=== PATIENT | female | born 1970 | race Caucasian/White ===

== ENCOUNTER → 2023-09-09 00:39 | Outpatient (CLI) | payer OTHER, MEDICAID, SELFPAY ==
--- NOTE | 2023-09-09 | DI.US_ITS ---
APPROVED REPORT EXAM: Comprehensive 2D, Doppler, and color-flow Echocardiogram Patient Location: Out-Patient Robotics Specialist: Evelyn Guerrero RDCS (AE) Indications: Intraductal CA LT Breast, Medication management, [facility] use medicine Other Information Study Quality: Good Conclusion Normal left ventricular wall thickness and chamber size. Ejection fraction is 60%. Wall motion is n ormal Normal right ventricular size and function Both atria are normal in size There are no structural valvular abnormalities Mild mitral regurgitation Estimated right ventricular systolic pressure is 25 mmHg Wall motion Left Ventricle The left ventricle is normal size. The left ventricular systolic function is normal. The left ventric ular ejection fraction is within the normal range. There is normal left ventricular wall thickness. T here is normal LV segmental wall motion. There is no ventricular septal defect visualized. LVEF is 60 %. Right Ventricle The right ventricle is normal size. The right ventricular systolic function is normal. Atria The left atrium size is normal. The right atrium size is normal. The interatrial septum is intact wit h no evidence for an atrial septal defect. Aortic Valve The aortic valve is normal in structure. Aortic valve is trileaflet. There is no aortic valvular sten osis. No aortic regurgitation is present. Mitral Valve The mitral valve is normal in structure. No evidence of mitral valve stenosis. Mild mitral regurgitat ion. Tricuspid Valve The tricuspid valve is normal in structure. There is no tricuspid valve stenosis. Trace tricuspid reg urgitation. The RVSP is _25.1 mmHg. Pulmonic Valve The pulmonary valve is normal in structure. There is no pulmonic valvular stenosis. There is no pulmo sylvia valvular regurgitation. Great Vessels The aortic root is normal in size. The ascending aorta is normal in size. Aortic arch is normal in ca liber. IVC is normal in size and collapses >50% with inspiration. Pericardium There is no pericardial effusion. 2D Dimensions IVSD d PLAX 1.00 cm F: 0.6-1.0 Ao Root d 2.84 cm F: 2.7 - 3.3 LVPW d PLAX 1.00 cm F: 0.6 - 1.0 Ao Asc Diam d 3.15 cm F: 2.3 - 3.1 LVID d PLAX 4.41 cm F: 3.8 - 5.2 LVDs 3.05 cm F: 2.2 - 3.5 LV EF Teichholz 58.8 % FS 30.91 % LV EDV (Teich) 88.1 mL LV ESV (Teich) 36.3 mL M-Mode TAPSE 2.11 cm (M/F) >1.7 Auto EF LV EDV A4C 108.2 mL LV EDV A2C 100.5 mL LV EDV BP 104.7 mL LV ESV A4C 42.1 mL LV ESV A2C 42.3 mL LV ESV BP 42.0 mL LVEF(%) A4C 61.1 % LVEF(%) A2C 58.0 % LVEF(%) BP 59.9 % LV SV A4C 66.1 ml LV SV A2C 58.3 ml LV SV BP 62.7 ml LV CO A4C 4.0 L/min LV CO A2C 3.9 L/min LV CO BP 3.9 L/min HR A4C 60.18 BPM HR A2C 66.55 BPM LV EDV Index (BP) LV Strain Long Pk Overal Avg (s) 17.37 RV Strain Global Peak Long. Strain A4C 16.76 Global Peak Long. Strain A4C FW 17.53 LA Volume LA Length A4C 5.6 cm LA Length A2C 5.6 cm LA Area A4C s 18.46 cm2 LA Area A2C s 21.36 cm2 LA Vol A4C A-L 51.77 mL LA Vol A2C A-L 68.85 mL LA Vol Biplane A-L 59.9 mL LA Vol/BSA A4C A-L LA Vol/BSA A2C A-L LA Vol/BSA BP A-L 27.5 mL/m2 LA Vol A4C MOD 46.9 mL LA Vol A2C MOD 63.4 mL LA Vol BP MOD 54.7 mL RA Volume RA Area A4C 8.5 cm2 RA ESV A4C (A-L) 16.0mL RA Vol/BSA A4C A-L RA Length A4C 3.9 cm RA ESV A4C (MOD) 15.8mL LV Diastology MV E' medial 0.079 (>0.07 m/s) MV E Vmax 0.98 (0.4-1.3 m/s) MV E/E' MED 12.38 (<14) MV A Vmax 0.85 (0.4-1.3 m/s) MV E' lateral 0.113 (>0.1 m/s) E/A Ratio 1.2 MV E/E' LAT 8.68 (<14) MV E' Average 0.096 m/s MV E/E'(average) 10.20 Aortic Valve AoV Vmax 1.52 m/s LVOT Vmax 1.15 m/s AoV Peak Grad 9.3 mmHg LVOT Peak Grad 5.3 mmHg AoV Area (Vmax) 2.21 cm2 LVOT VTI 0.263 m AoV VTI 0.351 m LVOT Mean Grad 3.0 mmHg AoV Mean Ced. 1.05 m/s LVOT SV 77.13 mL AoV Mean Grad 5.0 mmHg LVOT Diam s 1.90 cm AoV Area (VTI) 2.20 cm2 Velocity Ratio 0.76 Mitral Valve MV DT 137 (160-240 msec) MV Vmax TIPS 0.96 m/s MV Mean Grad 1.9 (<2mmHg) MV VTI 0.308 m Pulmonary Valve PV Vmax 1.03 (0.5-1.5 m/s) RVOT Vmax 0.91 m/s PV Peak Grad 4.3 mmHg RVOT Peak Gr. 3.3 mmHg PV Mean Ced 0.70 m/s RVOT VTI 0.228 m PV Mean Grad 2.2 mmHg RVOT Mean Gr. 1.9 mmHg Tricuspid Valve RA Pressure 3.00 mmHg TR Vmax 2.35 m/s TV S' 0.12 m/s TR Peak Grad 22.0 mmHg RVSP (TR) 25.1 mmHg
== END ==
PROVIDERS: Visit Provider Physician Assistant Medical
DX: D05.12 Intraductal carcinoma in situ of left breast (principal)
CPT/HCPCS: 93306

== ENCOUNTER 2024-01-19 02:29 | Outpatient (CLI) | payer MEDICAID, SELFPAY ==
--- NOTE | 2024-01-19 14:30 | DI.US_ITS ---
APPROVED REPORT EXAM: Comprehensive 2D, Doppler, and color-flow Echocardiogram Patient Location: Out-Patient Fiction Writer: Evelyn Guerrero RDCS (AE) Indications: Medication management, Intraductal carcinoma in situ of left breast Other Information Study Quality: Adequate Conclusion Normal left ventricular wall thickness and chamber size. Ejection fraction is 56%. Wall motion is n ormal Normal right ventricular size and function Both atria are normal in size There are no structural valvular abnormalities Mild mitral regurgitation Estimated right ventricular systolic pressure is 22 mmHg Wall motion Left Ventricle The left ventricle is normal size. The left ventricular systolic function is normal. The left ventric ular ejection fraction is within the normal range. GLS is 17.1% There is normal left ventricular wall thickness. There is normal LV segmental wall motion. There is no ventricular septal defect visualize d. LVEF is 56%. Right Ventricle The right ventricle is normal size. The right ventricular systolic function is normal. Atria The left atrium size is normal. The right atrium size is normal. The interatrial septum is intact wit h no evidence for an atrial septal defect. Aortic Valve The aortic valve is normal in structure. Aortic valve is trileaflet. There is no aortic valvular sten osis. No aortic regurgitation is present. Mitral Valve The mitral valve is normal in structure. No evidence of mitral valve stenosis. Mild mitral regurgita tion. Tricuspid Valve The tricuspid valve is normal in structure. There is no tricuspid valve stenosis. Trace tricuspid reg urgitation. The RVSP is 21.9 mmHg. Pulmonic Valve The pulmonary valve is normal in structure. There is no pulmonic valvular stenosis. Trace pulmonic re gurgitation. Great Vessels The aortic root is normal in size. The ascending aorta is normal in size. Aortic arch is normal in ca liber. IVC is normal in size and collapses >50% with inspiration. Pericardium There is no pericardial effusion. 2D Dimensions IVSD d PLAX 0.90 cm F: 0.6-1.0 Ao Root d 2.65 cm F: 2.7 - 3.3 LVPW d PLAX 0.90 cm F: 0.6 - 1.0 Ao Asc Diam d 3.04 cm F: 2.3 - 3.1 LVID d PLAX 4.54 cm F: 3.8 - 5.2 LVDs 3.24 cm F: 2.2 - 3.5 LV EF Teichholz 55.2 % FS 28.60 % LV EDV (Teich) 94.6 mL LV ESV (Teich) 42.4 mL M-Mode TAPSE 2.04 cm (M/F) >1.7 Auto EF LV EDV A4C LV EDV A2C LV EDV BP 124.2 mL LV ESV A4C LV ESV A2C LV ESV BP 56.5 mL LVEF(%) A4C LVEF(%) A2C LVEF(%) BP 54.5 % LV SV A4C LV SV A2C LV SV BP 67.7 ml LV CO A4C LV CO A2C LV CO BP 6.4 L/min LV Strain Long Pk Overal Avg (s) 17.11 RV Strain Global Peak Long. Strain A4C 11.92 Global Peak Long. Strain A4C FW 10.48 LA Volume LA Length A4C 6.1 cm LA Length A2C 5.9 cm LA Area A4C s 21.92 cm2 LA Area A2C s 24.42 cm2 LA Vol A4C A-L 66.97 mL LA Vol A2C A-L 85.63 mL LA Vol Biplane A-L 76.9 mL LA Vol/BSA A4C A-L LA Vol/BSA A2C A-L LA Vol/BSA BP A-L 36.6 mL/m2 LA Vol A4C MOD 61.4 mL LA Vol A2C MOD 76.7 mL LA Vol BP MOD 69.6 mL RA Volume RA Area A4C 15.7 cm2 RA ESV A4C (A-L) 43.6mL RA Vol/BSA A4C A-L RA Length A4C 4.8 cm RA ESV A4C (MOD) 40.2mL LV Diastology MV E' medial 0.076 (>0.07 m/s) MV E Vmax 0.90 (0.4-1.3 m/s) MV E/E' MED 11.84 (<14) MV A Vmax 0.75 (0.4-1.3 m/s) MV E' lateral 0.113 (>0.1 m/s) E/A Ratio 1.2 MV E/E' LAT 7.92 (<14) MV E' Average 0.095 m/s MV E/E'(average) 9.49 Aortic Valve AoV Vmax 1.59 m/s LVOT Vmax 1.21 m/s AoV Peak Grad 10.1 mmHg LVOT Peak Grad 5.8 mmHg AoV Area (Vmax) 2.28 cm2 LVOT VTI 0.245 m AoV VTI 0.332 m LVOT Mean Grad 3.6 mmHg AoV Mean Ced. 1.15 m/s LVOT SV 73.66 mL AoV Mean Grad 6.0 mmHg LVOT Diam s 1.95 cm AoV Area (VTI) 2.22 cm2 AV Regurg Peak Gr. 10.10 mmHg Velocity Ratio 0.76 Mitral Valve MV DT 165 (160-240 msec) MV Vmax TIPS 1.01 m/s MV Mean Grad 2.6 (<2mmHg) MV VTI 0.233 m Pulmonary Valve PV Vmax 1.03 (0.5-1.5 m/s) RVOT Vmax 0.93 m/s PV Peak Grad 4.3 mmHg RVOT Peak Gr. 3.5 mmHg PV Mean Ced 0.80 m/s RVOT VTI 0.201 m PV Mean Grad 2.8 mmHg RVOT Mean Gr. 2.2 mmHg Tricuspid Valve RA Pressure 3.00 mmHg TR Vmax 2.18 m/s TV S' 0.12 m/s TR Peak Grad 18.9 mmHg RVSP (TR) 21.9 mmHg
== END 2024-01-19 02:49 ==
PROVIDERS: Visit Provider Physician Assistant Medical
DX: D05.12 Intraductal carcinoma in situ of left breast (principal); Z79.899 Other long term (current) drug therapy
CPT/HCPCS: 93306

== ENCOUNTER 2024-01-30 04:03 | Outpatient (RCR) | payer MEDICAID, SELFPAY ==
[2024-01-17] MEDS: Normal Saline Flush 10 ML SYR IVP (10:26)
[2024-01-17 11:04] LABS: Absolute Eosinophil Count 0.01 10^3/uL (0.0-0.7); Absolute Lymphocyte Count 0.83 10^3/uL (1.2-3.4); Absolute Monocyte Count 0.08 10^3/uL (0.1-0.8); Absolute Neutrophil Count 1.69 10^3/uL (1.2-6.7); Eosinophils % 0.4 %; HCT 21.7 % (36.0-46.0); HGB 7.6 g/dL (11.2-15.7); Lymphocytes % 31.8 %; MCV 103 fL (80-95); MPV 11.1 fL (8.0-11.0); Monocytes % 3.1 %; Neutrophils % 64.7 %; RBC 2.11 10^6/uL (3.93-5.22); RDW 16.3 % (11.7-14.6); RDW-SD 60.2 fL; WBC 2.61 10^3/uL (4.4-10.8)
[2024-01-17 11:19] LABS: ALT 41 U/L (14-59); AST 18 U/L (15-37); Albumin 3.6 g/dL (3.4-5.0); Alkaline Phosphatase 85 U/L (46-116); Anion Gap 9.1 mmol/L (3-11); BUN 10 mg/dL (7-18); Bilirubin, Total 0.48 mg/dL (0.2-1.0); CO2 25.9 mmol/L (21.0-32.0); CREATININE 0.9 mg/dL (0.55-1.02); Calcium 9.1 mg/dL (8.5-10.1); Chloride 105 mmol/L (98-107); Estimated GFR 76.92 (mL/min/1.73m2); Glucose 167 mg/dL (74-106); Potassium 4.3 mmol/L (3.5-5.1); Sodium 140 mmol/L (136-145); Total Protein 6.8 g/dL (6.4-8.2)
[2024-01-17 11:42] LABS: Platelet Count 16 10^3/uL (130-400)
[2024-01-30] MEDS: Normal Saline Flush 10 ML SYR IVP (10:28)
[2024-01-30 10:31] LABS: Abs Immature Grans 0.01 10^3/uL (0.0-0.06); Absolute Eosinophil Count 0.04 10^3/uL (0.0-0.7); Absolute Lymphocyte Count 1.19 10^3/uL (1.2-3.4); Absolute Monocyte Count 0.21 10^3/uL (0.1-0.8); Absolute Neutrophil Count 0.66 10^3/uL (1.2-6.7); Eosinophils % 1.9 %; HCT 27.8 % (36.0-46.0); HGB 9.8 g/dL (11.2-15.7); Immature Grans % 0.5 %; Lymphocytes % 56.4 %; MCH 34.6 pg (27.0-33.0); MCHC 35.3 % (32.0-36.0); MCV 98 fL (80-95); MPV 10.2 fL (8.0-11.0); Neutrophils % 31.2 %; Platelet Count 102 10^3/uL (130-400); RBC 2.83 10^6/uL (3.93-5.22); RDW 16.7 % (11.7-14.6); RDW-SD 59.8 fL; WBC 2.11 10^3/uL (4.4-10.8)
[2024-01-30 10:49] LABS: Diff Comment Agrees w/ Instrument; RBC Morphology Normal
[2024-01-30 10:56] LABS: ALT 28 U/L (14-59); AST 11 U/L (15-37); Albumin 3.6 g/dL (3.4-5.0); Alkaline Phosphatase 114 U/L (46-116); Anion Gap 6.4 mmol/L (3-11); BUN 10 mg/dL (7-18); Bilirubin, Total 0.43 mg/dL (0.2-1.0); CO2 27.6 mmol/L (21.0-32.0); CREATININE 0.9 mg/dL (0.55-1.02); Calcium 9.2 mg/dL (8.5-10.1); Chloride 104 mmol/L (98-107); Estimated GFR 76.44 (mL/min/1.73m2); Glucose 142 mg/dL (74-106); Potassium 3.9 mmol/L (3.5-5.1); Sodium 138 mmol/L (136-145)
== END 2024-02-13 23:59 | disposition home or self-care (01) ==
LOC: INF 04:03
PROVIDERS: Visit Provider Physician Assistant Medical
DX: C50.412 Malignant neoplasm of upper-outer quadrant of left female breast (principal); Z17.1 Estrogen receptor negative status [ER-]; Z79.899 Other long term (current) drug therapy
CPT/HCPCS: 36591; 80053; 85025

== ENCOUNTER 2024-11-23 10:01 | Outpatient (CLI) | payer MEDICAID, SELFPAY ==
[2024-11-23 10:06] LABS: Abs Immature Grans 0.01 10^3/uL (0.0-0.06); HCT 33.8 % (36.0-46.0); HGB 11.1 g/dL (11.2-15.7); Immature Grans % 0.6 %; MCH 30.6 pg (27.0-33.0); MCHC 32.8 % (32.0-36.0); MCV 93 fL (80-95); MPV 9.5 fL (8.0-11.0); RBC 3.63 10^6/uL (3.93-5.22); RDW 14.2 % (11.7-14.6); RDW-SD 48.3 fL
[2024-11-23 10:27] LABS: Platelet Count 80 10^3/uL (130-400); RBC Morphology Normal
[2024-11-23 10:42] LABS: WBC 1.74 10^3/uL (4.4-10.8)
== END 2024-11-23 10:02 | disposition home or self-care (01) ==
LOC: LBO 10:01
PROVIDERS: Visit Provider Internal Medicine
DX: C50.412 Malignant neoplasm of upper-outer quadrant of left female breast (principal); Z17.1 Estrogen receptor negative status [ER-]
CPT/HCPCS: 36415; 85025

== ENCOUNTER 2025-01-07 14:22 | Outpatient (CLI) | payer MEDICAID, SELFPAY ==
[2025-01-07 09:42] LABS: Abs Immature Grans 0.00 10^3/uL (0.0-0.06); HCT 32.9 % (36.0-46.0); HGB 11.2 g/dL (11.2-15.7); Immature Grans % 0.0 %; MCH 31.0 pg (27.0-33.0); MCHC 34.0 % (32.0-36.0); MCV 91 fL (80-95); MPV 9.6 fL (8.0-11.0); RBC 3.61 10^6/uL (3.93-5.22); RDW 13.6 % (11.7-14.6); RDW-SD 45.7 fL
[2025-01-07 10:15] LABS: ALT 53 U/L (14-59); AST 46 U/L (15-37); Albumin 3.9 g/dL (3.4-5.0); Alkaline Phosphatase 260 U/L (46-116); Anion Gap 9.7 mmol/L (3-11); BUN 11 mg/dL (7-18); Bilirubin, Total 0.9 mg/dL (0.2-1.0); CO2 27.3 mmol/L (21.0-32.0); Calcium 9.9 mg/dL (8.5-10.1); Chloride 104 mmol/L (98-107); Estimated GFR 103.35 (mL/min/1.73m2); Glucose 129 mg/dL (74-106); Potassium 3.7 mmol/L (3.5-5.1); Sodium 141 mmol/L (136-145); Total Protein 7.7 g/dL (6.4-8.2)
[2025-01-07 10:27] LABS: Platelet Count 71 10^3/uL (130-400); RBC Morphology Normal
[2025-01-07 10:30] LABS: WBC 1.54 10^3/uL (4.4-10.8)
[2025-01-07 18:09] LABS: HBs Antibody, Quant 173.7 mIU/mL (See Note); Hepatitis B Surface Ab Positive (See Note)
[2025-01-07 18:48] LABS: Hepatitis C Ab w Rflx HCV PCR Negative (Negative)
[2025-01-07 18:50] LABS: Hep B Core Antibody Negative (Negative)
== END 2025-01-07 14:23 | disposition home or self-care (01) ==
LOC: LBO 14:23
PROVIDERS: Internal Medicine; Visit Provider Nurse Practitioner Adult Health
DX: C50.912 Malignant neoplasm of unspecified site of left female breast (principal); Z17.1 Estrogen receptor negative status [ER-]; Z79.899 Other long term (current) drug therapy; D69.6 Thrombocytopenia, unspecified; D70.2 Other drug-induced agranulocytosis; D05.12 Intraductal carcinoma in situ of left breast
CPT/HCPCS: 36415; 80053; 86704; 86706; 86803; 87340; 85025

== ENCOUNTER 2025-01-25 03:10 | Outpatient (RCR) | payer MEDICAID, SELFPAY ==
[2025-01-25] MEDS: Normal Saline Flush 10 ML SYR IVP (11:17)
[2025-01-25 11:27] LABS: Abs Immature Grans 0.00 10^3/uL (0.0-0.06); HCT 31.3 % (36.0-46.0); HGB 10.2 g/dL (11.2-15.7); Immature Grans % 0.0 %; MCH 30.3 pg (27.0-33.0); MCHC 32.6 % (32.0-36.0); MCV 93 fL (80-95); Platelet Count 69 10^3/uL (130-400); RBC 3.37 10^6/uL (3.93-5.22); RDW 14.1 % (11.7-14.6); RDW-SD 48.0 fL
[2025-01-25 11:54] LABS: ALT 50 U/L (14-59); AST 42 U/L (15-37); Albumin 3.6 g/dL (3.4-5.0); Alkaline Phosphatase 275 U/L (46-116); Anion Gap 7.5 mmol/L (3-11); BUN 14 mg/dL (7-18); Bilirubin, Total 0.8 mg/dL (0.2-1.0); CO2 29.5 mmol/L (21.0-32.0); Calcium 9.7 mg/dL (8.5-10.1); Chloride 105 mmol/L (98-107); Glucose 117 mg/dL (74-106); MPV 9.5 fL (8.0-11.0); Potassium 4.0 mmol/L (3.5-5.1); RBC Morphology Normal; Sodium 142 mmol/L (136-145); Total Protein 7.2 g/dL (6.4-8.2)
[2025-01-25 11:59] LABS: WBC 1.55 10^3/uL (4.4-10.8)
== END 2025-02-12 23:59 | disposition home or self-care (01) ==
LOC: INF 03:10
PROVIDERS: Visit Provider Nurse Practitioner Adult Health
DX: C50.912 Malignant neoplasm of unspecified site of left female breast (principal); Z17.1 Estrogen receptor negative status [ER-]; Z79.899 Other long term (current) drug therapy; D69.6 Thrombocytopenia, unspecified; D70.2 Other drug-induced agranulocytosis; Z45.2 Encounter for adjustment and management of vascular access device
CPT/HCPCS: 36591; 80053; 85025